=== PATIENT | female | born 1960 | race Caucasian/White ===

== ENCOUNTER 2018-09-11 21:11 | Emergency (ER) | payer MEDICAID ==
[~2018-09-11] VITALS: Ht 167.6 cm; Wt 67.6 kg
--- OUTSIDE RECORDS SUMMARY | 2018-09-11 22:02 | XMS ---
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 Toya VISIT COUNT (12 MO.) 1 [place] [address] LUCINDA Turpin TOTAL 2 NOTE: Visits indicate total known visits. ED/UCC VISIT TRACKING (12 MO.) 09/11/2018 21:11 [facility] [place] TYPE: Emergency COMPLAINT: - UPPER ABD PAIN 08/13/2018 18:30 [facility] [place] TYPE: Emergency DIAGNOSES: - Cyst of kidney, acquired - abdominal pain - Right upper quadrant pain INPATIENT VISIT TRACKING (12 MO.) No inpatient visits to display in this time frame [id number]
[2018-09-11] MEDS ORDERED: DEXILANT60 MG PO (22:18)
[2018-09-12] MEDS ORDERED: FLAGYL500 MG PO (00:51)
[2018-09-12] MEDS ORDERED: AUGMENTIN 875-1 EACH PO (00:51)
== END 2018-09-12 01:10 | disposition home or self-care (01) ==
LOC: ED 21:11
DX: R10.9 Unspecified abdominal pain (principal); Z90.49 Acquired absence of other specified parts of digestive tract; Z88.1 Allergy status to other antibiotic agents; Z88.5 Allergy status to narcotic agent; Z79.899 Other long term (current) drug therapy
CPT/HCPCS: 74177; 80053; 81001; 83690; 85025; 99284-25; J1170; J2405; J7030

== ENCOUNTER 2019-02-02 10:00 | Emergency (ER) | payer OTHER ==
[~2019-02-02] VITALS: Ht 167.6 cm; Wt 73.0 kg
--- OUTSIDE RECORDS SUMMARY | ~2019-02-02 | XMS | Encounter Summary ---
Demographics + + + | Address | [address] | | | [place] [address] | + + + | Home Phone | | + + + | Preferred Language | Unknown | + + + | Marital Status | Single | + + + | Sabianism Affiliation | Unknown | + + + | Race | White | + + + | Ethnic Group | Not or | + + + Author + + + | Author | [facility] | + + + | Organization | [facility] | + + + | Address | Unknown | + + + | Phone | Unavailable | + + + Support + + +---------+ + | Name | Relationship | Address | Phone | + + +---------+ + | Emmanuel Pierre | ECON | Unknown | | + + +---------+ + Care Team Providers + +------+ + | Care Chief Pharmacist Name | Role | Phone | + +------+ + | No Pcp Per Patient | PCP | Unavailable | + +------+ + Reason for Visit + + + | Reason | Comments | + + + | Follow-up encounter | | + + + Encounter Details +--------+---------+ + + + | Date | Type | Department | Care Team | Description | +--------+---------+ + + + | 06/05/ | Office | [facility] | Hardeep Rae MD | Visual disturbance | | 2015 | Visit | [place] [facility] [place] | [address] | (Primary Dx); Dry | | | | [address], | [address] [place], | eyes, bilateral | | | | [address] [place], | [place] [address] | [H04.123] | | | | [place] [address] | [phone] | | | | | [phone] | | | +--------+---------+ + + + Social History + +-------+ +--------+------+ | Tobacco Use | Types | Packs/Day | Years | Date | | | | | Used | | + +-------+ +--------+------+ | Never Smoker | | | | | + +-------+ +--------+------+ + + + | Sex Assigned at | Date Recorded | | | | + + + | Not on file | | + + + + + + + | Job Start Date | Occupation | Industry | + + + + | Not on file | Not on file | Not on file | + + + + + + + + | Travel History | Travel Start | Travel End | + + + + + + | No recent travel history available. | + + documented as of this encounter Progress Notes Hardeep Rae MD - 06/05/2015 8:23 AM PST [facility] [place] Progress Note 06/05/2015 CC: Follow-up encounter Pt here for 2 week follow-up dfe. Continuing to have aching, and pins and needles feeling OD, as well as film in periphery OD . . States she sees a" starburst, especially with lights at night". Using ATs QID OU. States help a little, but not as much as she was hoping for. HPI: Genny eWlls is a 54 y.o. Female who states that temporal "film" in vision still present OD, but discomfort improved with AT use. Pain: POH: No specialty comments on file. History Smoking status Never Smoker Smokeless tobacco Not on file History reviewed. No pertinent past medical history. FH: family history is negative for Blindness. Allergies Allergen Reactions Codeine Nausea and Vomiting See Ophthalmology Module for Examination Diagnostic Studies: No diagnostic studies ordered this encounter. IMPRESSION: 54 y.o. female with Ophthalmologic problems: 1. 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 Dry eye, both eyes - likely cause of symptoms of discomfort - feels better since using PFATs PLAN: - cont PFATs QID minimum - refer to retina next available for evaluation of visual disturbance RTC 1 year [facility] [place] (sooner if recommended by subspecialist); next available retina for evaluation of visual disturbance Call for decreased vision, increased distortion, increased pain, new floaters or flashing l ights. Hardeep Rae MD [facility] [address] [place] [address], [address] [place] [address] Grace who was unable to find any retina pathology to explain symptoms t hat may refer to Dr. Govind Olson for evaluation if patient continues to be bothered.Electr onically signed by Hardeep Rae MD at 07/06/2015 6:15 PM PDTdocumented in this encounter Plan of Treatment Not on filedocumented as of this encounter Visit Diagnoses + + | Diagnosis | + + | Visual disturbance - Primary Unspecified visual disturbance | + + | Dry eyes, bilateral [H04.123] Tear film insufficiency, unspecified | + + documented in this encounter
--- OUTSIDE RECORDS SUMMARY | ~2019-02-02 | XMS | Encounter Summary ---
Demographics + + + | Address | [address] | | | [place] [address] | + + + | Home Phone | | + + + | Preferred Language | Unknown | + + + | Marital Status | Single | + + + | Sikh Affiliation | Unknown | + + + | Race | White | + + + | Ethnic Group | Not or | + + + Author + + + | Author | [facility] | + + + | Organization | [facility] | + + + | Address | Unknown | + + + | Phone | Unavailable | + + + Support + + +---------+ + | Name | Relationship | Address | Phone | + + +---------+ + | Emmanuel Pierre | ECON | Unknown | | + + +---------+ + Care Team Providers + +------+ + | Care Material Manager Name | Role | Phone | + +------+ + | No Pcp Per Patient | PCP | Unavailable | + +------+ + Encounter Details +--------+ + + + + | Date | Type | Department | Care Team | Description | +--------+ + + + + | 06/24/ | Results/Int | [facility] | Nicholas Roque | Vitreous floaters of | | 2016 | erpretation | [facility] | Philippe Acosta MD [address] | right eye (Primary | | | | Sean Viramontes [facility] | [address] | Dx) | | | | [address] | [place], [place] | | | | | Mailcode: [facility] | [address] | | | | | [place], [place] | [phone] | | | | | [address] | | | | | | [phone] | | | +--------+ + + + + Social History + +-------+ [...] + documented as of this encounter Progress Juan Franco - 06/25/2015 3:51 PM Carmel Wells was seen in the [facility] Photography/Ultrasound Department today, 06/25/2015, for ultrasound. The B-scan of the right eye shows trace vitreous debris. There is a thin point of vitreous adhesion to the nasal disc. The retina appears attached. This is a Preliminary Report. It is the responsibility of the ordering physician to determi ne clinical care from image provided, or wait for official report. Juan DOMINGUEZ I have reviewed the images and the initial report and I have made any necessary changes to the report as needed based on my assessment. NICHOLAS ROQUE MD documented in this encounter Plan of Treatment Not on filedocumented as of this encounter Visit Diagnoses + + | Diagnosis | + + | Vitreous floaters of right eye - Primary | + + documented in this encounter"
--- OUTSIDE RECORDS SUMMARY | ~2019-02-02 | XMS | Clinical Summary ---
Demographics + + + | Address | [address] | | | [place] [address] | + + + | Home Phone | | + + + | Preferred Language | Unknown | + + + | Marital Status | Single | + + + | Zoroastrianism Affiliation | Unknown | + + + | Race | White | + + + | Ethnic Group | Not or | + + + Author + + + | Author | [facility] | + + + | Organization | [facility] | + + + | Address | Unknown | + + + | Phone | Unavailable | + + + Support + + +---------+ + | Name | Relationship | Address | Phone | + + +---------+ + | Emmanuel Pierre | ECON | Unknown | | + + +---------+ + Care Team Providers + +------+ + | Care Pumpman Name | Role | Phone | + +------+ + | No Pcp Per Patient | PCP | Unavailable | + +------+ + Source Comments SHARON is fully live on both [facility] Ambulatory and [facility] InPatient.[facility] Allergies + + + + + + | Active Allergy | Reactions | Severity | Noted | Comments | | | | | Date | | + + + + + + | Codeine | Nausea and Vomiting | | 05/22/19 | | | | | | 16 | | + + + + + + Medications + +-----+ +---------+------+------+-------+ | Medication | Sig | Dispensed | Refills | Star | End | Statu | | | | | | t | Date | s | | | | | | Date | | | + +-----+ +---------+------+------+-------+ | zolpidem 10 mg | | | 0 | 05/25 | | Activ | | oral tablet | | | | 09/10 | | e | | | | | | 17 | | | + +-----+ +---------+------+------+-------+ Active Problems + + + | Problem | Noted Date | + + + | 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 | + + Last Filed Vital Signs Not on file Plan of Treatment + + + + + | Health Maintenance | Due Date | Last Done | Comments | + + + + + | Influenza (Flu) | | | | | vaccination (#1) | 9 | | | + + + + + | Pneumococcal | Aged Out | | No longer eligible | | vaccination | | | based on patient's | | | | | age to complete this | | | | | topic | + + + + + Results Not on filefrom Last 3 Months Insurance + +--------+ +--------+-------+---------+--------+ | Payer | Benefi | Subscriber | Effect | Phone | Address | Type | | | t Plan | ID | greg | | | | | | / | | Dates | | | | | | Group | | | | | | + +--------+ +--------+-------+---------+--------+ | SALES ADVISOR MEDICAID | SALES ADVISOR | xxxxxxxx | | | | Medica | | | [place]UM[place] | | 016-Pr | | | id | | | [place] | | esent | | | | | | PACIFI | | | | | | | | C | | | | | | + +--------+ +--------+-------+---------+--------+ + +--------+ +--------+ + + | Guarantor Name | Accoun | Relation to | Date | Phone | Billing Address | | | t Type | Patient | of | | | | | | | | | | + +--------+ +--------+ + + | Genny Wells | Person | Self [birth year] | [address] | | | [place] | | 1961 | [phone] | [place] [address] | | | jeffrey | | | 4 (Home) | | + +--------+ +--------+ + +"
--- OUTSIDE RECORDS SUMMARY | ~2019-02-02 | XMS | Encounter Summary ---
Demographics + + + | Address | [address] | | | [place] [address] | + + + | Home Phone | | + + + | Preferred Language | Unknown | + + + | Marital Status | Single | + + + | Orthodox Affiliation | Unknown | + + + | Race | White | + + + | Ethnic Group | Not or | + + + Author + + + | Author | [facility] | + + + | Organization | [facility] | + + + | Address | Unknown | + + + | Phone | Unavailable | + + + Support + + +---------+ + | Name | Relationship | Address | Phone | + + +---------+ + | Emmanuel Pierre | ECON | Unknown | | + + +---------+ + Care Team Providers + +------+ + | Care Junior Sales Representative Name | Role | Phone | + +------+ + | No Pcp Per Patient | PCP | Unavailable | + +------+ + Reason for Visit + + + | Reason | Comments | + + + | New patient | | | consultation | | + + + Consultation (Routine) +--------+--------+ + + + + | Status | Reason | Specialty | Diagnoses / | Referred By | Referred To | | | | | Procedures | Contact | Contact | +--------+--------+ + + + + | Closed | | Ophthalmology | Diagnoses | Butch, | Flaxel, | | | | | visual | Hardeep Lawrence MD | MD Treasure | | | | | distrubance | [address] | | | | | otherwise | [address] | [address] | | | | | unexplained | [address] | Blvd | | | | | | [place], [place] | [facility] [place] | | | | | | [address] | [address] | | | | | | Phone: | Phone: | | | | | | [phone] | [phone] | | | | | | Fax: | Fax: | | | | | | [phone] | [phone] | +--------+--------+ + + + + Encounter Details +--------+---------+ + + + | Date | Type | Department | Care Team | Description | +--------+---------+ + + + | 06/24/ | Office | [facility] | Treasure Iyer, | Negative | | 2016 | Visit | [facility] at | [address] | dysphotopsia | | | | Sean [address] | (Primary Dx) | | | | [address] | [facility] [place] | | | | | Mailcode: [place] | [address] | | | | | [facility] [place] | [phone] | | | | | [address] | | | | | | [phone] | | | +--------+---------+ + + + [...] + documented as of this encounter Progress Cassidy Hernandez - 06/25/2015 1:06 PM PST [facility] Progress Note 06/25/2015 CC: New patient consultation Initial History: Referred by Dr. Rae for visual disturbance Pt. Complains of noticing a shadow temporally and inferiorly in her right eye. She also co mplains of noticing star bursts especially at night in the right eye. This started in Novem elly. No problems left eye. Last 3 ambulatory procedures on record: ROS Negative for: Constitutional, Gastrointestinal, Neurological, Skin, Genitourinary, Musculo skeletal, HENT, Endocrine, Cardiovascular, Eyes, Respiratory, Psychiatric, Allergic/Imm, Hem e/Lymph Last edited by Cassidy Madrigal on 06/25/2015 1:05 PM. (History) HPI: Genny Wells is a 54 y.o. female Last visit: No past encounter found in [facility]. Here for a second opinion regarding: visual disturbance - h/o myopia with ? Clear lens extr action OU 2006 and restor IOL's OU - noticing star bursts and odd shadow OD for past several months Pain:No pain (0 of 0-10) POH: No specialty comments on file. Current Outpatient Prescriptions (Other) Medication Sig CYANOCOBALAMIN, VITAMIN B-12, (VITAMIN B-12 ORAL) Take by mouth. MEDICATION HELP Herbal supplements traMADol History reviewed. No pertinent past medical history. Past Surgical History Procedure Laterality Date Cataract extraction, left eye Cataract extraction, right eye Appendectomy Dilation and curettage family history includes Cataract in her mother; Glaucoma in an other family member; and Mac ular degeneration in her mother. There is no history of Blindness. History Substance Use Topics Smoking status: Never Smoker Smokeless tobacco: Not on file Alcohol Use: Not on file See Ophthalmology Module for Examination Diagnostics Ordered Right Left OCT CMT 274 normal CMT: 276 No IRF, SRF or Sub-RPE fluid FA RF: clear media Transit: within normal limits normal retinal vasculature RF: clear m edia normal retinal vasculature FUNDUS Color fundus photos obtained for documentation & future comparison Color fundus ph otos obtained for documentation & future comparison Others bscan OD The B-scan of the right eye shows trace vitreous debris. There is a thin point of vitreous adhesion to the nasal disc. The retina appears attached. No PVD noted --- IMPRESSION: 54 y.o. 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 Rae - could consider referral to Neuro-ophthalmology PLAN: Observe for now Letter to Dr. Hardeep Rae Call for decreased vision, increased distortion, increased pain, new floaters or flashing l ights Follow up: prn Attestations: The shale processing technician, under the supervision of the physician, is responsible for performing the f ollowing sections: RFV, ROS, PMH, PSH, SocHx, FH, Med list, Base Ophth Exam. The attending physician is responsible for the entire content of the note and has personall y performed the HPI and the physical examination TREASURE IYER MD documented in this encounter Plan of Treatment + + +--------+ + + | Name | Type | Priori | Associated Diagnoses | Order Schedule | | | | ty | | | + + +--------+ + + | ULTRASOUND, B SCAN | Procedures | Routin | | Expected: | | | | e | | 06/25/2015, Expires: | | | | | | 12/25/2016 | + + +--------+ + + | CMPTR OPHTH DX IMG | Procedures | Routin | Negative | Expected: | | POST SEGMT | | e | dysphotopsia | 06/25/2015, Expires: | | | | | | 12/25/2016 | + + +--------+ + + | FLUORESCEIN | Procedures | Routin | Negative | Expected: | | ANGIOGRAM | | e | dysphotopsia | 06/25/2015, Expires: | | | | | | 12/25/2016 | + + +--------+ + + | COLOR PHOTOGRAPHY | Procedures | Routin | Negative | Expected: | | | | e | dysphotopsia | 06/25/2015, Expires: | | | | | | 12/25/2016 | + + +--------+ + + | FUNDUS PHOTO | Procedures | Routin | Negative | Expected: | | AUTOFLUORESCENCE | | e | dysphotopsia | 06/25/2015, Expires: | | | | | | 12/25/2016 | + + +--------+ + + documented as of this encounter Procedures + +--------+ + + + | Procedure Name | Priori | Date/Time | Associated Diagnosis | Comments | | | ty | | | | + +--------+ + + + | ID SPECIAL EYE EXAM, | Routin | 07/03/2015 | Negative | | | INITIAL | e | 1:47 PM | dysphotopsia | | | | | PST | | | + +--------+ + + + | ID FLUORESCEIN | Routin | 06/25/2015 | Negative | | | ANGIOGRAPHY | e | 2:14 PM | dysphotopsia | | | | | PST | | | + +--------+ + + + | ID FLUORESCEIN | Routin | 06/25/2015 | Negative | | | ANGIOGRAPHY | e | 2:14 PM | dysphotopsia | | | | | PST | | | + +--------+ + + + documented in this encounter Visit Diagnoses + + | Diagnosis | + + | 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
--- OUTSIDE RECORDS SUMMARY | ~2019-02-02 | XMS | Encounter Summary ---
Demographics + + + | Address | [address] | | | [place] [address] | + + + | Home Phone | | + + + | Preferred Language | Unknown | + + + | Marital Status | Single | + + + | Lutheran Affiliation | Unknown | + + + | Race | White | + + + | Ethnic Group | Not or | + + + Author + + + | Author | [facility] | + + + | Organization | [facility] | + + + | Address | Unknown | + + + | Phone | Unavailable | + + + Support + + +---------+ + | Name | Relationship | Address | Phone | + + +---------+ + | Emmanuel Pierre | ECON | Unknown | | + + +---------+ + Care Team Providers + +------+ + | Care Form Setter Steel Forms Name | Role | Phone | + +------+ + | No Pcp Per Patient | PCP | Unavailable | + +------+ + Reason for Visit + + + | Reason | Comments | + + + | Ultrasound - B Scan | OD | + + + Encounter Details +--------+ + + + + | Date | Type | Department | Care Team | Description | +--------+ + + + + | 06/24/ | Diagnostic | [facility] | | Ultrasound - B Scan | | 2016 | Visit | [facility] | | (OD) | | | | Photography at | | | | | | Sean Viramontes [facility] | | | | | | [address] | | | | | | Mailcode: [facility] | | | | | | [place], [place] | | | | | | [address] | | | | | | [phone] | | | +--------+ + + + [...] + + documented as of this encounter Juan Kamara - 06/25/2015 3:53 PM PSTUltrasound-Ultrasound - B Scan - OD was performed. Interpretation for the above study can be found in Dr. Nicholas Roque s results interpretation encounter on 06/25/2015.Electronically signed by Juan Stanley at 06/2015 3:53 PM PSTdocumented in this encounter Plan of Treatment Not on filedocumented as of this encounter Visit Diagnoses + + | Diagnosis | + + | Floaters in visual field, right | + + documented in this encounter"
--- OUTSIDE RECORDS SUMMARY | ~2019-02-02 | XMS | Encounter Summary ---
Demographics + + + | Address | [address] | | | [place] [address] | + + + | Home Phone [...] Author + + + | Author | [facility] | + + + | Organization | [facility] | + + + | Address | Unknown | + + + | Phone | Unavailable | + + + Support + + +---------+ + | Name | Relationship | Address | Phone | + + +---------+ + | Emmanuel Pierre | ECON | Unknown | | + + +---------+ + Care Team Providers + +------+ + | Care Leather Shaver Name | Role | Phone | + +------+ + | No Pcp Per Patient | PCP | Unavailable | + +------+ + Reason for Visit + + + | Reason | Comments | + + + | OCT - Macula | OU | + + + | Fundus photography | OU | + + + | Autofluorescence | OU | + + + | Fluorescein | OU | + + + Encounter Details +--------+ + + + + | Date | Type | Department | Care Team | Description | +--------+ + + + + | 06/24/ | Diagnostic | [facility] | | OCT - Macula (OU); | | 2016 | Visit | [place] | | Fundus photography | | | | Photography at | | (OU); | | | | [facility] [address] | | Autofluorescence | | | | [address] | | (OU); Fluorescein | | | | Mailcode: [facility] | | (OU) | | | | [place], [place] | | | | | | [address] | | | | | | [phone] | | | +--------+ + + + [...] + documented as of this encounter Progress Jason Gomez - 06/25/2015 4:19 PM PSTThe interpretation for the following study: OCT - Macula - OU Fundus photography - OU Autofluorescence - OU Fluorescein - OU can be found on physician encounter on 06/25/2015. documented in this e ncounter Plan of Treatment Not on filedocumented as of this encounter Visit Diagnoses + + | Diagnosis | + + | Floaters in visual field, right | + + documented in this encounter"
--- OUTSIDE RECORDS SUMMARY | ~2019-02-02 | XMS | Clinical Summary ---
Demographics + + + | Address | [address] | | | [place] [address] | + + + | Home Phone | | + + + | Preferred Language | Unknown | + + + | Marital Status | Single | + + + | Oriental Orthodox Affiliation | Unknown | + + + | Race | Unknown | + + + | Ethnic Group | Unknown | + + + Author + + + | Author | [facility] | | | and Rachidana | + + + | Organization | [facility] | | | and Rachidana | + + + | Address | Unknown | + + + | Phone | Unavailable | + + + Support + + +---------+ + | Name | Relationship | Address | Phone | + + +---------+ + | Emmanuel Pierre | ECON | Unknown | | + + +---------+ + Care Team Providers + +------+ + | Care Band Saw Runner Name | Role | Phone | + +------+ + | Zach Cruz MD | PCP | | + +------+ + Allergies + + + + + + | Active Allergy | Reactions | Severity | Noted | Comments | | | | | Date | | + + + + + + | Codeine | Nausea And Vomiting | Low | 05/22/19 | | | | | | 16 | | + + + + + + | Hydrocodone | Nausea And Vomiting | Low | 03/23/20 | | | | | | 17 | | + + + + + + | Oxycodone | Nausea And Vomiting | Low | 09/16/19 | | | | | | 17 | | + + + + + + Medications + + + +---------+------+------+-------+ | Medication | Sig | Dispensed | Refills | Star | End | Statu | | | | | | t | Date | s | | | | | | Date | | | + + + +---------+------+------+-------+ | zolpidem (AMBIEN) | | | 0 | 09/0 | | Activ | | 5 mg tablet | | | | 11/10 | | e | | | | | | 18 | | | + + + +---------+------+------+-------+ | rifAXIMin | Take 1 tablet by | 42 | 3 | 09/1 | | Activ | | (XIFAXAN) 550 mg | mouth 3 times daily. | tablet | | 1/20 | | e | | TABSIndications: | | | | 18 | | | | Duodenal | | | | | | | | diverticulum, | | | | | | | | Bacterial overgrowth | | | | | | | | syndrome | | | | | | | + + + +---------+------+------+-------+ | ondansetron | Take 1 tablet by | 30 | 2 | 09/2 | 09/2 | Expir | | (ZOFRAN) 4 mg | mouth every 8 hours | tablet | | 0/20 | 0/20 | ed | | tabletIndications: | as needed for | | | 18 | 19 | | | Abdominal pain, | Nausea. | | | | | | | unspecified | | | | | | | | abdominal location | | | | | | | + + + +---------+------+------+-------+ Active Problems + + + | Problem | Noted Date | + + + | Duodenitis | 03/25/2017 | + + + | Nonerosive esophageal reflux disease | 03/25/2017 | + + + | Hiatal hernia | 03/25/2017 | + + + | Hx of cholecystectomy | 03/24/2017 | + + + | Duodenal diverticulum | 03/24/2017 | + + + | RUQ abdominal pain | 01/17/2017 | + + + Resolved Problems + + + + | Problem | Noted | Resolved | | | Date | Date | + + + + | Duodenal diverticulum | 03/25/20 | | | | 17 | 7 | + + + + Family History + + +------+ + | Medical History | Relation | Name | Comments | + + +------+ + | Other (see comment) | Mother | | gallbladder disease, uterine cancer | + + +------+ + + +------+--------+ [...] | | | + +-------+ +--------+------+ + +---+---+---+ | Smokeless Tobacco: | | | | | Never Used | | | | + +---+---+---+ + + +---------+ + | Alcohol Use | Drinks/We | oz/Week | Comments | | | ek | | | + + +---------+ + | Yes | 1 | 0.6 | weekly | | | Glasses | | | | | of wine | | | + + +---------+ + + + + | Sex Assigned at [...] | + + Last Filed Vital Signs + + + + | Vital Sign | Reading | Time Taken | + + + + | Blood Pressure | 126/69 | 01/10/20181827 PDT | + + + + | Pulse | 64 | 01/10/20181827 PDT | + + + + | Temperature | 36.4 C (97.5 F) | 01/10/20181827 PDT | + + + + | Respiratory Rate | 18 | 01/10/20181827 PDT | + + + + | Oxygen Saturation | 96% | 01/10/20181827 PDT | + + + + | Inhaled Oxygen | - | - | | Concentration | | | + + + + | Weight | 74.3 kg (163 lb 12.8 | 01/10/20181215 PDT | | | oz) | | + + + + | Height | 167.6 cm (5' 6") | 01/10/20181215 PDT | + + + + | Body Mass Index | 26.44 | 01/10/20181215 PDT | + + + + Plan of Treatment + + + + + | Health Maintenance | Due Date | Last Done | Comments | + + + + + | Hepatitis C | | | | | Screening | 0 | | | + + + + + | Vaccine: | | | | | Dtap/Tdap/Td (1 - | 9 | | | | Tdap) | | | | + + + + + | Cervical Cancer | | | | | Screening (Pap) | 0 | | | + + + + + | Colorectal Cancer | | | | | Screening | 0 | | | | (Colonoscopy) | | | | + + + + + | Vaccine: Zoster (1 | | | | | of 2) | 0 | | | + + + + + | Breast Cancer | | | | | Screening | 5 | | | + + + + + | Vaccine: Influenza | | | | | (#1) | 9 | | | + + + + + Results [...] | | | + +--------+ +--------+-------+---------+--------+ | AMERIGROUP MEDICAID | AMERIG | [id number] | 10/23/19 | | | Medica | | HMO | ROUP | | 17-Pre | | | id | | | APPLE | | sent | | | | | | HEALTH | | | | | | | | [place] | | | | | | + [...] Person | Self | [birth year] | [address] | | | al/Fam | | 1961 | [phone] | [place], [place] | | | jeffrey | | | 4 (Home) | [address] | + +--------+ +--------+ + + Advance Directives Patient has advance care planning documents, and code status on file. For more information, please contact:[facility] [place] [address] + + + + + | Code Status | Date | Date | Comments | | | Activated | Inactivated | | + + + + + | Full Code | 03/24/2017 | 03/26/2017 | | | | 2:41 | 13:31 | | + + + + + + + + +---+ | | | | | + + + +---+ | Full Code | 03/02/2017 | 03/02/2017 | | | | 10:29 | 14:33 | | + + + +---+
--- OUTSIDE RECORDS SUMMARY | ~2019-02-02 | XMS | Encounter Summary ---
Demographics + + + | Address | [address] | | | [place] [address] | + + + | Home Phone | | + + + | Preferred Language | Unknown | + + + | Marital Status | Single | + + + | Jainism Affiliation | Unknown | + + + | Race | White | + + + | Ethnic Group | Not or | + + + Author + + + | Author | [facility] | + + + | Organization | [facility] | + + + | Address | Unknown | + + + | Phone | Unavailable | + + + Support + + +---------+ + | Name | Relationship | Address | Phone | + + +---------+ + | Emmanuel Pierre | ECON | Unknown | | + + +---------+ + Care Team Providers + +------+ + | Care Manufacturing Quality Manager Name | Role | Phone | [...] disturbance | | 2015 | Visit | [place] in [place] | [address] | (Primary Dx); Dry | | | | [address], | [address] [place], | eyes, bilateral | | | | [address] [place], | [place] [address] | [H04.123] | | | | [place] [address] | [phone] | | | | | [phone] | | | +--------+---------+ + + + [...] Rae MD - 06/05/2015 8:23 AM PST [facility] [place] Progress Note 06/05/2015 CC: Follow-up encounter Pt here for 2 week follow-up dfe. Continuing to have aching, and pins and needles feeling OD, as well as film in periphery OD . . States she sees a" starburst, especially with lights at night". Using ATs QID OU. States help a little, but not as much as she was hoping for. HPI: Genny Wells is a 54 y.o. Female who states [...] of visual disturbance RTC 1 year [facility] [place] (sooner if recommended by subspecialist); next available retina for evaluation of visual disturbance Call for decreased vision, increased distortion, increased pain, new floaters or flashing l ights. Hardeep Rae MD [facility] [place] [address] [place] [address], [address] [place] [address] Grace who was [...]
--- OUTSIDE RECORDS SUMMARY | ~2019-02-02 | XMS | Encounter Summary ---
Demographics + + + | Address | [address] | | | [place] [address] | + + + | Home Phone | | + + + | Preferred Language | Unknown | + + + | Marital Status | Single | + + + | Baptism Affiliation | Unknown | + + + | Race | White | + + + | Ethnic Group | Not or | + + + Author + + + | Author | [facility] | + + + | Organization | [facility] | + + + | Address | Unknown | + + + | Phone | Unavailable | + + + Support + + +---------+ + | Name | Relationship | Address | Phone | + + +---------+ + | Emmanuel Pierre | ECON | Unknown | | + + +---------+ + Care Team Providers + +------+ + | Care Staff Physical Therapist Name | Role | Phone | + +------+ + | No Pcp Per Patient | PCP | Unavailable | + +------+ + Reason for Visit + + + | Reason | Comments | + + + | Follow-up visit | | + + + | Annual health | | | maintenance | | | examination | | + + + Encounter Details +--------+---------+ + + + | Date | Type | Department | Care Team | Description | +--------+---------+ + + + | 06/17/ | Office | [facility] | Hardeep Rae MD | Bilateral | | 2017 | Visit | [place] in [place] | [address] | pseudophakia | | | | [address], | [address] [place], | (Primary Dx) | | | | [address] [place], | [place] [address] | | | | | [place] [address] | [phone] | | | | | [phone] | | | +--------+---------+ + + + [...] encounter Progress Notes Hardeep Rae MD - 06/17/2016 11:00 AM PST [facility] [place] Progress Note 06/17/2016 CC: Follow-up visit Annual health maintenance examination Pt here For annual OS , feels pressure at times. Vision blurry. +iol ou + od at times blurry and pressure at the same time. Just got out of hospital last Monday. otc readers Aware dnd HPI: Genny Wells is a 55 y.o. Female here for annual exam. Pain: POH: restor IOL OU History Smoking Status Never Smoker Smokeless Tobacco Not on file No past medical history on file. FH: Family history includes Cataract in her mother; Glaucoma in an other family member; and Macular degeneration in her mother. There is no history of Blindness. Allergies Allergen Reactions Codeine Nausea and Vomiting Current Outpatient Prescriptions (Other) Medication Sig zolpidem See Ophthalmology Module for Examination Diagnostic Studies: No diagnostic studies ordered this encounter. IMPRESSION: 55 y.o. female with Ophthalmologic problems: 1. Pseudophakia, both eyes - had clear lens exchange with Restor lenses in setting of high myopia 2007 2. 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 Hardeep Rae MD [facility] [place] [address], [address] [place] [address] documented in this enc ounter Plan of Treatment Not on filedocumented as of this encounter Visit Diagnoses + + | Diagnosis | + + | Bilateral pseudophakia - Primary Lens replaced by other means | + + documented in this encounter"
--- OUTSIDE RECORDS SUMMARY | ~2019-02-02 | XMS | Encounter Summary ---
Demographics + + + | Address | [address] | | | [place] [address] | + + + | Home Phone | | + + + | Preferred Language | Unknown | + + + | Marital Status | Single | + + + | Jewish Affiliation | Unknown | + + + | Race | White | + + + | Ethnic Group | Not or | + + + Author + + + | Author | [facility] | + + + | Organization | [facility] | + + + | Address | Unknown | + + + | Phone | Unavailable | + + + Support + + +---------+ + | Name | Relationship | Address | Phone | + + +---------+ + | Emmanuel Pierre | ECON | Unknown | | + + +---------+ + Care Team Providers + +------+ + | Care Surgical Supplies Sterilizer Name | Role | Phone | + +------+ + | No Pcp Per Patient | PCP | Unavailable | + +------+ + Reason for Visit + + + | Reason | Comments | + + + | Distortion In Vision | | + + + Encounter Details +--------+---------+ + + + | Date | Type | Department | Care Team | Description | +--------+---------+ + + + | 05/22/ | Office | [facility] | Hardeep Rae MD | Negative | | 2016 | Visit | [place] in [place] | [address] | dysphotopsia | | | | [address], | [address] [place], | (Primary Dx); Dry | | | | [address] [place], | [place] [address] | eyes, bilateral | | | | [place] [address] | [phone] | [H04.123] | | | | [phone] | | | +--------+---------+ + + + [...] encounter Progress Notes Hardeep Rae MD - 05/22/2015 3:39 PM PST [facility] Progress Note 05/22/2015 CC: Distortion In Vision Patient is here regarding OD sharp pains, pressure feeling that started a few weeks ago. For the last three days she has seen a shadow in [place] that moves up and down. Hx of IOL OU-jesús rodriguez has IOL cards. Patient states she was given multifocal IOL. HPI: Genny Wells is a 54 y.o. Female h/o high myopia s/p CE/IOL with multifocal lens es OU here for evaluation of temporal shadow OD. She endorses brief sharp pains for the las t few days. She denies new flashes and floaters. She also denies progression of the "shado w." Pain: POH: No specialty comments on file. History Smoking status Never Smoker Smokeless tobacco Not on file History reviewed. No pertinent past medical history. FH: family history is negative for Blindness. Allergies Allergen Reactions Codeine Nausea and Vomiting See Ophthalmology Module for Examination Diagnostic Studies: No diagnostic studies ordered this encounter. IMPRESSION: 54 y.o. female with Ophthalmologic problems: 1. Visual disturbance likely representing negative dysphotopsia, right eye - patient's description of visual disturbance is consistent with negative dysphotopsia as s he describes a temporal crescent - no signs of retinal tear or detachment on exam 2. Dry eye, both eyes - likely cause of symptoms of discomfort PLAN: - reassurance regarding likely negative dysphotopsia given as patient appears to have signi ficant anxiety - ATs QID OU RTC 2 weeks for DFE OD only; may call to cancel or reschedule if doing well Call for decreased vision, increased distortion, increased pain, new floaters or flashing l ights. Hardeep Rae MD [facility] [place] [address], [address] [place] [address] documented in this enc ounter Plan of Treatment Not on filedocumented as of this encounter Visit Diagnoses + + | Diagnosis | + + | Negative dysphotopsia - Primary | + + | Dry eyes, bilateral [H04.123] Tear film insufficiency, unspecified | + + documented in this encounter
--- OUTSIDE RECORDS SUMMARY | ~2019-02-02 | XMS | Clinical Summary ---
Demographics + + + | Address | [address] | | | [place] [address] | + + + | Home Phone | | + + + | Preferred Language | Unknown | + + + | Marital Status | Single | + + + | Yarsani Affiliation | Unknown | + + + | Race | Unknown | + + + | Ethnic Group | Unknown | + + + Author + + + | Author | [facility] | | | and Rachidana | + + + | Organization | [facility] | | | [...] Team Providers + +------+ + | Care Publications Designer Name | Role | Phone | + [...] +--------+-------+---------+--------+ | AMERIGROUP MEDICAID | AMERIG | [id number] | 10/23/19 | | | Medica | [...] al/Fam | | 1961 | [phone] | [place], [place] | | | jeffrey | | | 4 (Home) | [address] | + +--------+ +--------+ + + Advance Directives Patient has advance care planning documents, and code status on file. For more information, please contact:[facility] [place] [address] + + + + + | Code [...]
--- OUTSIDE RECORDS SUMMARY | ~2019-02-02 | XMS | Encounter Summary ---
Demographics + + + | Address | [address] | | | [place] [address] | + + + | Home Phone [...] Team Providers + +------+ + | Care Radiation Control Technician Name | Role | Phone | + [...] Bilateral | | 2017 | Visit | [place] in [place] | [address] | pseudophakia | | | | [address], | [address] [place], | (Primary Dx) | | | | [address] [place], | [place] [address] | | | | | [place] [address] | [phone] | | | | | [phone] | | | +--------+---------+ + + + [...] - 06/17/2016 11:00 AM PST [facility] [place] Progress Note 06/17/2016 CC: Follow-up visit Annual [...] or flashing l ights. Hardeep Rae MD [facility] [place] [address], [address] [place] [address] documented in this enc ounter Plan of Treatment Not on filedocumented as of this encounter Visit Diagnoses + + | Diagnosis | + + | Bilateral pseudophakia - Primary Lens replaced by other means | + + documented in this encounter"
--- OUTSIDE RECORDS SUMMARY | ~2019-02-02 | XMS | Encounter Summary ---
Demographics + + + | Address | [address] | | | [place] [address] | + + + | Home Phone | | + + + | Preferred Language | Unknown | + + + | Marital Status | Single | + + + | Mormon Affiliation | Unknown | + + + [...] Team Providers + +------+ + | Care Barley Steeper Name | Role | Phone | + [...] Scan | | 2016 | Visit | [place] | | (OD) | | | | Photography at | | | | | | Sean Viramontes [facility] | | | | | | [address] | | | | | | Mailcode: [facility] | | | | | | [place], [place] | | | | | | [address] | | | | | | [phone] | | | +--------+ + + + [...]
--- OUTSIDE RECORDS SUMMARY | ~2019-02-02 | XMS | Encounter Summary ---
Demographics + + + | Address | [address] | | | [place] [address] | + + + | Home Phone | | + + + | Preferred Language | Unknown | + + + | Marital Status | Single | + + + | Shinto Affiliation | Unknown | + + + | Race | White | + + + | Ethnic Group | Not or | + + + Author + + + | Author | [facility] | + + + | Organization | [facility] | + + + | Address | Unknown | + + + | Phone | Unavailable | + + + Support + + +---------+ + | Name | Relationship | Address | Phone | + + +---------+ + | Emmanuel Pierre | ECON | Unknown | | + + +---------+ + Care Team Providers + +------+ + | Care Prick Stitcher Name | Role | Phone | + [...] Negative | | 2016 | Visit | [place] in [place] | [address] | dysphotopsia | | | | [address], | [address] [place], | (Primary Dx); Dry | | | | [address] [place], | [place] [address] | eyes, bilateral | | | | [place] [address] | [phone] | [H04.123] | | | | [phone] | | | +--------+---------+ + + + [...] Rae MD - 05/22/2015 3:39 PM PST [facility] [place] Progress Note 05/22/2015 CC: Distortion In Vision [...] or flashing l ights. Hardeep Rae MD [facility] [place] [address], [address] [place] [address] documented in this enc ounter Plan of Treatment Not on filedocumented as of this encounter Visit Diagnoses + + | Diagnosis | + + | Negative dysphotopsia - Primary | + + | Dry eyes, bilateral [H04.123] Tear film insufficiency, unspecified | + + documented in this encounter
--- OUTSIDE RECORDS SUMMARY | ~2019-02-02 | XMS | Clinical Summary ---
Demographics + + + | Address | [address] | | | [place] [address] | + + + | Home Phone | | + + + | Preferred Language | Unknown | + + + | Marital Status | Single | + + + | Buddhist Affiliation | Unknown | + + + | Race | White | + + + | Ethnic Group | Not or | + + + Author + + + | Author | [facility] | + + + | Organization | [facility] | + + + | Address | Unknown | + + + | Phone | Unavailable | + + + Support + + +---------+ + | Name | Relationship | Address | Phone | + + +---------+ + | Emmanuel Pierre | ECON | Unknown | | + + +---------+ + Care Team Providers + +------+ + | Care Lead Investigator Name | Role | Phone | + +------+ + | No Pcp Per Patient | PCP | Unavailable | + +------+ + Source Comments SHARON is fully live on both [facility] and [facility] InPatient.[facility] Allergies + + + + + + [...] | | | + +--------+ +--------+-------+---------+--------+ | PAYMENT ANALYST MEDICAID | PAYMENT ANALYST | [id number] | | | | Medica [...] | 1961 | [phone] | [place] [address] | | | jeffrey | | | 4 (Home) | | + +--------+ +--------+ + +"
--- OUTSIDE RECORDS SUMMARY | ~2019-02-02 | XMS | Encounter Summary ---
Demographics + + + | Address | [address] | | | [place] [address] | + + + | Home Phone [...] Team Providers + +------+ + | Care Photography Teacher Name | Role | Phone | + [...] (OU); | | 2016 | Visit | [place] | | Fundus photography | | | | Photography at | | (OU); | | | | [facility] [address] | | Autofluorescence | | | | [address] | | (OU); Fluorescein | | | | Mailcode: [facility] | | (OU) | | | | [place], [place] | | | | | | [address] | | | | | | [phone] | | | +--------+ + + + [...]
--- OUTSIDE RECORDS SUMMARY | ~2019-02-02 | XMS | Encounter Summary ---
Demographics + + + | Address | [address] | | | [place] [address] | + + + | Home Phone | | + + + | Preferred Language | Unknown | + + + | Marital Status | Single | + + + | Quaker Affiliation | Unknown | + + + [...] Team Providers + +------+ + | Care Cover Marker Name | Role | Phone | + [...] [address] | | | | | | [place], [place] | [facility] [place] | | | | | | [address] | [address] | | | | | | Phone: | Phone: | | | | | | [phone] | [phone] | | | | | | Fax: | Fax: | | | | | | [phone] | [phone] | +--------+--------+ + + + + Encounter Details +--------+---------+ + + + | Date | Type | Department | Care Team | Description | +--------+---------+ + + + | 06/24/ | Office | [facility] | Treasure Iyer, | Negative | | 2016 | Visit | [facility] at | [address] | dysphotopsia | | | | [address] | (Primary Dx) | | | | [address] | [facility] [place] | | | | | Mailcode: CE | [address] | | | | | 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
--- OUTSIDE RECORDS SUMMARY | ~2019-02-02 | XMS | Encounter Summary ---
Demographics + + + | Address | [address] | | | [place] [address] | + + + | Home Phone [...] Author + + + | Author | [facility] | + + + | Organization | [facility] | + + + | Address | Unknown | + + + | Phone | Unavailable | + + + Support + + +---------+ + | Name | Relationship | Address | Phone | + + +---------+ + | Emmanuel Pierre | ECON | Unknown | | + + +---------+ + Care Team Providers + +------+ + | Care Plant Protection Supervisor Name | Role | Phone | + [...] of | | 2016 | erpretation | [facility] at | Philippe Acosta MD [address] | right eye (Primary | | | | Sean Viramontes [facility] | [address] | Dx) | | | | [address] | [place], [place] | | | | | Mailcode: [facility] | [address] | | | | | [place], [place] | [phone] | | | | | [address] | | | | | | [phone] | | | +--------+ + + + [...] PM Carmel Wells was seen in the [facility] Photography/Ultrasound Department today, 06/25/2015, for ultrasound. [...]
[~2019-02-02 10:00] MED LIST: AUGMENTIN 875-1 EACH PO; DEXILANT60 MG PO; FLAGYL500 MG PO
--- OUTSIDE RECORDS SUMMARY | 2019-02-02 10:02 | XMS ---
PreManage Notification: INEZ DE LEON Security Territory Account Representative Events No recent Security Events currently on file CRITERIA MET - [facility] CARE PROVIDERS JUAN FLORES Nurse Practitioner: Current PHONE: [phone] PCP, PCP: OPAL Specialist Current PHONE: [phone] PCP: Adarsh Villalobos DO PHONE: [phone] [facility] PR[facility] Primary Care 06/08/2015-Current CLINIC PHONE: [phone] Tesfaye has no Care Guidelines for this patient. Toya VISIT COUNT (12 MO.) 1 [facility] 2 LUCINDA Turpin TOTAL 3 NOTE: Visits indicate total known visits. ED/UCC VISIT TRACKING (12 MO.) 02/02/2019 10:00 [facility] [place] TYPE: Emergency COMPLAINT: - VISION PROBLEM 09/11/2018 21:11 [facility] [place] TYPE: Emergency COMPLAINT: - UPPER ABD PAIN DIAGNOSES: - Allergy status to narcotic agent status - Other fdc (current) drug therapy - Allergy status to other antibiotic agents status - Acquired absence of other specified parts of digestive tract - Unspecified abdominal pain 08/13/2018 18:30 [facility] [place] TYPE: Emergency DIAGNOSES: - Cyst of kidney, acquired - abdominal pain - Right upper quadrant pain INPATIENT VISIT TRACKING (12 MO.) No inpatient visits to display in this time frame [id number]
[2019-02-02] MEDS ORDERED: AMBIEN5 MG PO (10:13)
== END 2019-02-02 12:47 | disposition short-term general hospital (02) ==
LOC: ED 10:00
DX: H53.9 Unspecified visual disturbance (principal); Z88.1 Allergy status to other antibiotic agents; Z88.5 Allergy status to narcotic agent
CPT/HCPCS: 99284